=== PATIENT | female | born 1955 | race Caucasian/White ===

== ENCOUNTER 2020-12-22 14:19 | Outpatient (CLI) | payer MEDICARE ==
--- NOTE | 2020-12-22 15:03 | BD ---
Exam: DEXA Bone Density 12/22/20 HISTORY: Postmenopausal screening for osteoporosis. FINDINGS: Lumbar Spine: BMD (g/cm2) T-SCORE Z-SCORE L1 1.047 0.5 2.2 L2 1.155 1.2 3.0 L3 1.314 2.1 4.1 L4 1.218 1.4 3.5 L1-L4 1.181 1.2 3.1 Femoral Neck: 0.735 -1.0 0.6 Total Femur: 0.693 -2.0 =0.7 Impression: The ten year fracture risk for a major osteoporotic fracture is 6.6% and for hip fracture is 0.6%. IMPRESSION: Osteopenia. POS: OFF
--- NOTE | 2020-12-22 15:18 | MMO ---
Bilateral MAMMO Bilat Screen [facility]. CLINICAL HISTORY: Patient is 65 years old and is seen for screening. The patient has no family history of breast cancer. The patient has no personal history of cancer. VIEWS: The views performed were: bilateral craniocaudal with tomosynthesis and bilateral mediolateral oblique with tomosynthesis. This study has been interpreted with the assistance of computer-aided detection. MAMMOGRAM FINDINGS: There are scattered fibroglandular densities. There are no suspicious masses, suspicious calcifications, or new areas of architectural distortion. IMPRESSION: THERE IS NO MAMMOGRAPHIC EVIDENCE OF MALIGNANCY. A ROUTINE FOLLOW-UP MAMMOGRAM IN 1 YEAR IS RECOMMENDED. THE RESULTS OF THIS EXAM WERE SENT TO THE PATIENT. ACR BI-RADS Category 1 - Negative MAMMOGRAPHY NOTE: 1. A negative mammogram report should not delay a biopsy if a dominant of clinically suspicious mass is present. 2. Approximately 10% to 15% of breast cancers are not detected by mammography. 3. Adenosis and dense breasts may obscure an underlying neoplasm. Reported by: YOSSI CRAVEN MD Electonically Signed: [id number]
== END 2020-12-22 14:20 | disposition home or self-care (01) ==
LOC: BICMAMMO 14:19
PROVIDERS: ATTEND Family Medicine
DX: Z12.31 Encounter for screening mammogram for malignant neoplasm of breast (principal); Z13.820 Encounter for screening for osteoporosis; N95.1 Menopausal and female climacteric states; M85.859 Other specified disorders of bone density and structure, unspecified thigh
CPT/HCPCS: 77063; 77067; 77080

== ENCOUNTER 2021-02-28 13:47 | Outpatient (CLI) | payer MEDICARE | END 2021-02-28 13:48 | disposition home or self-care (01) | LOC: BICULT 13:47 | PROVIDERS: ATTEND Family Medicine | DX: R09.89 Other specified symptoms and signs involving the circulatory and respiratory systems (principal) | CPT/HCPCS: 93923 ==

== ENCOUNTER 2021-03-19 12:40 | Inpatient (IN) | payer MEDICARE ==
[2021-03-19] MEDS ORDERED: Fentanyl 100 MCG/2 ML VIAL ONE (13:10)
[2021-03-19] MEDS ORDERED: Acetaminophen 325 MG TAB PO PRN (19:00)
[2021-03-19] MEDS ORDERED: Ondansetron ODT 4 MG TAB SL PRN (19:00)
[2021-03-19] MEDS ORDERED: Ondansetron PF 4 MG/2 ML Vial IVP PRN (19:00)
[2021-03-19 21:13] LABS: #Eosinphils 0.1 thou/uL (0.0-0.7); #Lymphocytes 1.5 thou/uL (1.20-3.40); #Monocytes 0.4 thou/uL (0.11-0.59); #Neutrophils 2.7 thou/uL (1.40-6.50); %Basophils 0.1 % (0.0-1.0); %Eosinophils 2.2 % (0.0-10.0); %Monocytes 9.2 % (0.0-10.0); %Neutrophils 57.6 % (42.0-75.0); Hemoglobin 9.4 g/dL (12.0-16.0); Mean Corpuscular HGB CONC 33.4 g/dL (32.0-36.0); Mean Corpuscular Hemoglobin 28.9 pg (27.0-31.0); Mean Corpuscular Volume 86.5 fL (78.0-98.0); Mean Platelet Volume 9.4 fL (7.4-10.4); Platelet Count 149 thou/uL (130-400); RBC Distribution Width 13.3 % (11.5-14.5); Red Blood Cell (RBC) Count 3.25 mill/uL (4.20-5.40); White Blood Cell (WBC) Count 4.7 thou/uL (4.8-10.8)
[2021-03-19] MEDS ORDERED: VANCOMYCIN 1.25 GM/250 ML BAG IVPB SCH (21:30)
[2021-03-19 21:34] LABS: ALT (SGPT) 24 U/L (8-55); AST (SGOT) 52 U/L (5-34); Albumin 3.5 g/dL (3.4-4.8); Alkaline Phosphatase 60 U/L (40-110); Anion Gap 13 mmol/L (10-20); BUN (Urea Nitrogen) 17 mg/dL (9.8-20.1); Bilirubin, Total 0.3 mg/dL (0.2-1.2); CRP (Inflammatory) Less than 0.50 mg/dL (= or < 0.5); Calc. Creatinine Clearance 0 mL/min (70-130); Calcium 8.9 mg/dL (7.8-10.44); Carbon Dioxide 23 mmol/L (23-31); Chloride 109 mmol/L (98-107); Globulin 2.4 g/dL (2.4-3.5); Glucose 219 mg/dL (80-115); Potassium 3.8 mmol/L (3.5-5.1); Protein, Total 5.9 g/dL (5.8-8.1); Sodium 141 mmol/L (136-145)
[2021-03-19] MEDS: HYDROcodone/Acetaminophen 5/325 mg Tablet PO PRN (21:55)
[2021-03-19 21:58] VITALS: BMI 20.2
[2021-03-19] MEDS ORDERED: Dextrose 5% in Water 1,000 ML IV PRN (22:22)
[2021-03-19] MEDS ORDERED: Dextrose 50% Abboject 50 ML SYRINGE SLOW IVP PRN (22:22)
[2021-03-19] MEDS ORDERED: Vancomycin 1 GM in Premix Bag 1 BAG IVPB SCH (22:45)
[2021-03-20] MEDS: Ketorolac Tromethamine 30 MG/ML VIAL IVP PRN ×3 (02:11→22:39)
[2021-03-20 06:27] LABS: #Eosinphils 0.1 thou/uL (0.0-0.7); #Lymphocytes 1.5 thou/uL (1.20-3.40); #Monocytes 0.5 thou/uL (0.11-0.59); #Neutrophils 3.9 thou/uL (1.40-6.50); %Basophils 0.2 % (0.0-1.0); %Eosinophils 1.8 % (0.0-10.0); %Lymphocytes 24.6 % (21.0-51.0); %Monocytes 7.8 % (0.0-10.0); %Neutrophils 65.6 % (42.0-75.0); Hemoglobin 9.7 g/dL (12.0-16.0); Mean Corpuscular HGB CONC 32.1 g/dL (32.0-36.0); Mean Corpuscular Hemoglobin 27.7 pg (27.0-31.0); Mean Corpuscular Volume 86.3 fL (78.0-98.0); Mean Platelet Volume 8.9 fL (7.4-10.4); Platelet Count 146 thou/uL (130-400); RBC Distribution Width 13.3 % (11.5-14.5); Red Blood Cell (RBC) Count 3.49 mill/uL (4.20-5.40); White Blood Cell (WBC) Count 5.9 thou/uL (4.8-10.8)
[2021-03-20 06:47] LABS: Anion Gap 11 mmol/L (10-20); BUN (Urea Nitrogen) 16 mg/dL (9.8-20.1); Calc. Creatinine Clearance 63 mL/min (70-130); Calcium 8.9 mg/dL (7.8-10.44); Carbon Dioxide 25 mmol/L (23-31); Chloride 109 mmol/L (98-107); Glucose 103 mg/dL (80-115); Iron 50 ug/dL (50-170); Iron Binding Capacity, Total 270 mcg/dL (265-497); Potassium 3.2 mmol/L (3.5-5.1); Sodium 142 mmol/L (136-145)
[2021-03-20 06:51] LABS: Iron 47 ug/dL (50-170); Iron Binding Capacity, Total 268 mcg/dL (265-497)
[2021-03-20 07:12] LABS: Ferritin 24.68 ng/mL (10-291)
[2021-03-20] MEDS ORDERED: Potassium Chloride 20 MEQ TAB PO SCH (07:45)
[2021-03-20] MEDS: Losartan 25 MG TAB PO SCH (09:02)
[2021-03-20] MEDS: Enoxaparin Sodium 40 MG/0.4 ML SYRINGE SC SCH (09:02)
[2021-03-20] MEDS: Atorvastatin Calcium 40 MG TAB PO SCH (09:02)
[2021-03-20] MEDS: Collagenase 250 UNITS/GM Ointment 30 GM TUBE TOP SCH (11:44)
[2021-03-20] MEDS: Vancomycin HCl 750 MG in Sodium Chloride 0.9% 250 ML 250 ML IVPB SCH ×2 (11:44→23:06)
[2021-03-20] MEDS: HYDROcodone/Acetaminophen 5/325 mg Tablet PO PRN (13:40)
[2021-03-20 14:11] LABS: SARS-CoV-2 PCR by NAA Not Detected (NotDetected)
[2021-03-21] MEDS: Atorvastatin Calcium 40 MG TAB PO SCH (08:34)
[2021-03-21] MEDS: Losartan 25 MG TAB PO SCH (08:34)
[2021-03-21] MEDS: Collagenase 250 UNITS/GM Ointment 30 GM TUBE TOP SCH (08:35)
[2021-03-21] MEDS: Enoxaparin Sodium 40 MG/0.4 ML SYRINGE SC SCH (08:35)
[2021-03-21] MEDS ORDERED: Iopamidol-370 76% 500 ML 1 ML ONE (10:40)
[2021-03-21] MEDS ORDERED: Vancomycin 1 GM in Premix Bag 1 BAG IVPB SCH (11:00)
[2021-03-21] MEDS ORDERED: Ketorolac Tromethamine 30 MG/ML VIAL ONE (11:55)
[2021-03-21] MEDS: Ketorolac Tromethamine 30 MG/ML VIAL IVP PRN ×2 (12:05→21:12)
[2021-03-22] MEDS: Ketorolac Tromethamine 30 MG/ML VIAL IVP PRN ×4 (02:48→21:05)
[2021-03-22 08:24] LABS: #Eosinphils 0.2 thou/uL (0.0-0.7); #Lymphocytes 1.4 thou/uL (1.20-3.40); #Monocytes 0.4 thou/uL (0.11-0.59); #Neutrophils 3.3 thou/uL (1.40-6.50); %Basophils 0.3 % (0.0-1.0); %Eosinophils 3.4 % (0.0-10.0); %Monocytes 7.9 % (0.0-10.0); %Neutrophils 62.4 % (42.0-75.0); Hemoglobin 10.1 g/dL (12.0-16.0); Mean Corpuscular HGB CONC 32.1 g/dL (32.0-36.0); Mean Corpuscular Hemoglobin 28.1 pg (27.0-31.0); Mean Corpuscular Volume 87.3 fL (78.0-98.0); Mean Platelet Volume 9.4 fL (7.4-10.4); Platelet Count 145 thou/uL (130-400); RBC Distribution Width 13.4 % (11.5-14.5); Red Blood Cell (RBC) Count 3.61 mill/uL (4.20-5.40); White Blood Cell (WBC) Count 5.2 thou/uL (4.8-10.8)
[2021-03-22] MEDS: Aspirin 81 mg Enteric Coated Tablet PO SCH (08:29)
[2021-03-22] MEDS: Atorvastatin Calcium 40 MG TAB PO SCH (08:30)
[2021-03-22] MEDS: Losartan 25 MG TAB PO SCH (08:30)
[2021-03-22 08:34] LABS: Anion Gap 11 mmol/L (10-20); BUN (Urea Nitrogen) 20 mg/dL (9.8-20.1); Calc. Creatinine Clearance 62 mL/min (70-130); Calcium 8.9 mg/dL (7.8-10.44); Carbon Dioxide 27 mmol/L (23-31); Chloride 107 mmol/L (98-107); Glucose 101 mg/dL (80-115); Potassium 4.1 mmol/L (3.5-5.1); Sodium 141 mmol/L (136-145)
[2021-03-22] MEDS: Enoxaparin Sodium 40 MG/0.4 ML SYRINGE SC SCH (08:35)
[2021-03-22] MEDS: Collagenase 250 UNITS/GM Ointment 30 GM TUBE TOP SCH (09:40)
[2021-03-22] MEDS: HumaLOG 300 UNITS/3 ML VIAL SC PRN ×2 (11:16→21:06)
[2021-03-22] MEDS: HYDROcodone/Acetaminophen 5/325 mg Tablet PO PRN (23:42)
[2021-03-23] MEDS ORDERED: Lidocaine 1% (PF) 30 ML VIAL ONE (06:35)
[2021-03-23] MEDS ORDERED: Fentanyl 100 MCG/2 ML VIAL ONE (07:26)
[2021-03-23 07:30] LABS: Anion Gap 14 mmol/L (10-20); BUN (Urea Nitrogen) 25 mg/dL (9.8-20.1); Calc. Creatinine Clearance 59 mL/min (70-130); Calcium 9.3 mg/dL (7.8-10.44); Carbon Dioxide 26 mmol/L (23-31); Chloride 106 mmol/L (98-107); Glucose 99 mg/dL (80-115); Potassium 4.5 mmol/L (3.5-5.1); Sodium 141 mmol/L (136-145)
[2021-03-23 07:31] LABS: #Eosinphils 0.2 thou/uL (0.0-0.7); #Lymphocytes 1.5 thou/uL (1.20-3.40); #Monocytes 0.5 thou/uL (0.11-0.59); #Neutrophils 2.9 thou/uL (1.40-6.50); %Basophils 0.3 % (0.0-1.0); %Eosinophils 4.3 % (0.0-10.0); %Lymphocytes 29.3 % (21.0-51.0); %Monocytes 9.5 % (0.0-10.0); %Neutrophils 56.6 % (42.0-75.0); Hemoglobin 10.7 g/dL (12.0-16.0); Mean Corpuscular HGB CONC 31.8 g/dL (32.0-36.0); Mean Corpuscular Hemoglobin 27.9 pg (27.0-31.0); Mean Corpuscular Volume 87.7 fL (78.0-98.0); Mean Platelet Volume 9.8 fL (7.4-10.4); Platelet Count 171 thou/uL (130-400); RBC Distribution Width 13.6 % (11.5-14.5); Red Blood Cell (RBC) Count 3.83 mill/uL (4.20-5.40)
[2021-03-23] MEDS: Collagenase 250 UNITS/GM Ointment 30 GM TUBE TOP SCH (08:56)
[2021-03-23] MEDS: Enoxaparin Sodium 40 MG/0.4 ML SYRINGE SC SCH (08:56)
[2021-03-23] MEDS: Aspirin 81 mg Enteric Coated Tablet PO SCH (08:56)
[2021-03-23] MEDS ORDERED: Heparin 10,000 UNITS/ 10 ML VIAL ONE (08:56)
[2021-03-23] MEDS: Losartan 25 MG TAB PO SCH (08:56)
[2021-03-23] MEDS: Atorvastatin Calcium 40 MG TAB PO SCH (08:56)
[2021-03-23] MEDS ORDERED: hydrALAZINE 20 MG/ML VIAL ONE (08:58)
[2021-03-23] MEDS ORDERED: Protamine Sulfate 50 MG/5 ML VIAL ONE (09:05)
[2021-03-23] MEDS ORDERED: Metoprolol Tartrate 5 MG/5 ML VIAL ONE (09:20)
[2021-03-23] MEDS ORDERED: HYDROcodone/Acetaminophen 5/325 mg Tablet ONE (10:39)
[2021-03-23] MEDS ORDERED: Iopamidol 370 76% 50 ML VIAL FS ONE (11:30)
[2021-03-23] MEDS: Ketorolac Tromethamine 30 MG/ML VIAL IVP PRN ×2 (13:15→20:06)
[2021-03-23] MEDS ORDERED: Magnesium Citrate 300 ML BOT PO SCH (15:45)
[2021-03-23] MEDS: HumaLOG 300 UNITS/3 ML VIAL SC PRN ×2 (17:14→20:32)
[2021-03-24] MEDS: Ketorolac Tromethamine 30 MG/ML VIAL IVP PRN (05:35)
[2021-03-24] MEDS: Aspirin 81 mg Enteric Coated Tablet PO SCH (08:13)
[2021-03-24] MEDS: Enoxaparin Sodium 40 MG/0.4 ML SYRINGE SC SCH (08:14)
[2021-03-24] MEDS: Losartan 25 MG TAB PO SCH (08:17)
[2021-03-24] MEDS: Atorvastatin Calcium 40 MG TAB PO SCH (08:17)
[2021-03-24] MEDS: Collagenase 250 UNITS/GM Ointment 30 GM TUBE TOP SCH (08:19)
[2021-03-24] MEDS ORDERED: Pioglitazone HCl 15 MG TAB PO SCH (09:00)
[2021-03-24] MEDS ORDERED: Heparin 5,000 UNITS/ML VIAL ONE (10:04)
[2021-03-24] MEDS ORDERED: Protamine Sulfate 50 MG/5 ML VIAL ONE (10:04)
[2021-03-24] MEDS ORDERED: Heparin 10,000 UNITS/ 10 ML VIAL ONE (11:15)
[2021-03-24] MEDS ORDERED: Heparin 10,000 UNITS/1 ML VIAL 30,000 UNITS in Sodium Chloride 0.9% 1,000 ML FS SCH (11:15)
[2021-03-24] MEDS ORDERED: Fentanyl 100 MCG/2 ML VIAL ONE (11:18)
[2021-03-24] MEDS ORDERED: PHENYLEPHRINE-NS 100 MCG/ML 10 ML SYRINGE ONE (11:33)
[2021-03-24] MEDS ORDERED: Dexamethasone 20 MG/5 ML VIAL ONE (11:33)
[2021-03-24] MEDS ORDERED: Rocuronium Bromide 10 MG/ML (10ML VIAL) ONE (11:33)
[2021-03-24] MEDS ORDERED: PROPOFOL 200 MG/20 ML VIAL ONE (11:33)
[2021-03-24] MEDS ORDERED: Ketorolac Tromethamine 30 MG/ML VIAL ONE (11:33)
[2021-03-24] MEDS ORDERED: Ondansetron PF 4 MG/2 ML Vial ONE ×2 (11:33→15:43)
[2021-03-24] MEDS ORDERED: Lidocaine 1% PF 5 ML VIAL ONE (11:33)
[2021-03-24] MEDS ORDERED: Ondansetron HCl/PF 4 MG/2 ML Vial IVP PRN (13:36)
[2021-03-24] MEDS ORDERED: Ondansetron PF 4 MG/2 ML Vial IVP PRN (15:08)
[2021-03-24] MEDS ORDERED: Nitroglycerin 50 MG/250 ML BOT 250 ML IVPB PRN (15:08)
[2021-03-24] MEDS ORDERED: Fentanyl 100 MCG/2 ML VIAL SLOW IVP PRN ×2 (15:08)
[2021-03-24] MEDS ORDERED: Norepinephrine 8 MG/0.9% NS 250 ML IVPB PRN (15:08)
[2021-03-24] MEDS ORDERED: Promethazine HCl 25 MG/ML VIAL IVPB PRN (15:08)
[2021-03-24] MEDS ORDERED: Electrolyte Replacement Protocol IVPB PRN (15:08)
[2021-03-24 15:49] LABS: Hemoglobin 7.8 g/dL (12.0-16.0); Mean Corpuscular Hemoglobin 29.1 pg (27.0-31.0); Mean Platelet Volume 8.8 fL (7.4-10.4); Platelet Count 175 thou/uL (130-400); RBC Distribution Width 13.6 % (11.5-14.5); Red Blood Cell (RBC) Count 2.67 mill/uL (4.20-5.40); White Blood Cell (WBC) Count 9.6 thou/uL (4.8-10.8)
[2021-03-24] MEDS: Ketorolac Tromethamine 30 MG/ML VIAL IVP SCH (17:43)
[2021-03-24] MEDS: Lactated Ringer's 1,000 ML IV SCH (17:44)
[2021-03-24] MEDS: CEFAZOLIN 2 GM in Premix Bag 1 BAG IVPB SCH (20:39)
[2021-03-24] MEDS: Acetaminophen 325 MG TAB PO PRN (20:39)
[2021-03-24] MEDS: Insulin Regular 300 UNITS/3 ML VIAL SC PRN (21:08)
[2021-03-25] MEDS: Ketorolac Tromethamine 30 MG/ML VIAL IVP SCH ×5 (00:07→23:04)
[2021-03-25] MEDS: Lactated Ringer's 1,000 ML IV SCH ×2 (00:07→06:05)
[2021-03-25] MEDS: CEFAZOLIN 2 GM in Premix Bag 1 BAG IVPB SCH ×2 (02:45→10:04)
[2021-03-25 03:52] LABS: #Lymphocytes 0.5 thou/uL (1.20-3.40); #Monocytes 0.6 thou/uL (0.11-0.59); #Neutrophils 7.4 thou/uL (1.40-6.50); %Basophils 0.4 % (0.0-1.0); %Eosinophils 0.1 % (0.0-10.0); %Lymphocytes 6.1 % (21.0-51.0); %Monocytes 6.5 % (0.0-10.0); %Neutrophils 86.9 % (42.0-75.0); Hemoglobin 6.6 g/dL (12.0-16.0); Mean Corpuscular HGB CONC 32.9 g/dL (32.0-36.0); Mean Corpuscular Hemoglobin 28.6 pg (27.0-31.0); Mean Corpuscular Volume 87.1 fL (78.0-98.0); Platelet Count 150 thou/uL (130-400); RBC Distribution Width 13.5 % (11.5-14.5); Red Blood Cell (RBC) Count 2.31 mill/uL (4.20-5.40); White Blood Cell (WBC) Count 8.5 thou/uL (4.8-10.8)
[2021-03-25 04:19] LABS: Anion Gap 11 mmol/L (10-20); BUN (Urea Nitrogen) 24 mg/dL (9.8-20.1); Calc. Creatinine Clearance 55 mL/min (70-130); Calcium 7.8 mg/dL (7.8-10.44); Carbon Dioxide 24 mmol/L (23-31); Chloride 107 mmol/L (98-107); Glucose 192 mg/dL (80-115); Potassium 4.4 mmol/L (3.5-5.1); Sodium 138 mmol/L (136-145)
[2021-03-25] MEDS: Enoxaparin Sodium 30 MG/0.3 ML SYRINGE SC SCH (10:03)
[2021-03-25] MEDS: Insulin Regular 300 UNITS/3 ML VIAL SC PRN (16:22)
[2021-03-25] MEDS: Acetaminophen 325 MG TAB PO PRN (20:35)
[2021-03-26 04:24] LABS: Anion Gap 9 mmol/L (10-20); BUN (Urea Nitrogen) 18 mg/dL (9.8-20.1); Calc. Creatinine Clearance 66 mL/min (70-130); Calcium 8.3 mg/dL (7.8-10.44); Carbon Dioxide 24 mmol/L (23-31); Chloride 111 mmol/L (98-107); Glucose 110 mg/dL (80-115); Potassium 4.6 mmol/L (3.5-5.1); Sodium 139 mmol/L (136-145)
[2021-03-26] MEDS: Ketorolac Tromethamine 30 MG/ML VIAL IVP SCH ×3 (06:06→17:48)
[2021-03-26 06:10] LABS: #Eosinphils 0.2 thou/uL (0.0-0.7); #Lymphocytes 1.1 thou/uL (1.20-3.40); #Monocytes 0.5 thou/uL (0.11-0.59); %Basophils 0.3 % (0.0-1.0); %Eosinophils 3.6 % (0.0-10.0); %Lymphocytes 15.4 % (21.0-51.0); %Monocytes 7.9 % (0.0-10.0); %Neutrophils 72.9 % (42.0-75.0); Hemoglobin 9.5 g/dL (12.0-16.0); Mean Corpuscular HGB CONC 32.6 g/dL (32.0-36.0); Mean Corpuscular Hemoglobin 28.9 pg (27.0-31.0); Mean Corpuscular Volume 88.9 fL (78.0-98.0); Mean Platelet Volume 9.2 fL (7.4-10.4); Platelet Count 127 thou/uL (130-400); RBC Distribution Width 13.4 % (11.5-14.5); Red Blood Cell (RBC) Count 3.27 mill/uL (4.20-5.40); White Blood Cell (WBC) Count 6.9 thou/uL (4.8-10.8)
[2021-03-26] MEDS: Enoxaparin Sodium 30 MG/0.3 ML SYRINGE SC SCH (08:22)
[2021-03-26] MEDS: Acetaminophen 325 MG TAB PO PRN (08:23)
[2021-03-26] MEDS ORDERED: Losartan 25 MG TAB PO SCH ×2 (10:35→10:45)
[2021-03-26] MEDS ORDERED: Aspirin 81 mg Enteric Coated Tablet PO SCH ×2 (10:35→10:45)
[2021-03-26] MEDS: Insulin Regular 300 UNITS/3 ML VIAL SC PRN (11:33)
[2021-03-26] MEDS ORDERED: Atorvastatin Calcium 40 MG TAB PO SCH (21:00)
[2021-03-27] MEDS: Ketorolac Tromethamine 30 MG/ML VIAL IVP SCH ×2 (00:12→05:30)
[2021-03-27] MEDS ORDERED: hydrALAZINE 20 MG/ML VIAL SLOW IVP SCH (04:00)
[2021-03-27] MEDS ORDERED: traMADol HCl 50 MG TAB PO PRN (06:04)
[2021-03-27] MEDS: Enoxaparin Sodium 30 MG/0.3 ML SYRINGE SC SCH (08:10)
[2021-03-27] MEDS ORDERED: Aspirin 81 mg Enteric Coated Tablet PO SCH (09:00)
[2021-03-27] MEDS ORDERED: Polyethylene Glycol 3350 17 GM Packet PO SCH (09:00)
[2021-03-27] MEDS ORDERED: Losartan 25 MG TAB PO SCH ×2 (09:00)
[2021-03-27] MEDS ORDERED: Amlodipine 5 MG TAB PO SCH (09:00)
[2021-03-27 15:41] VITALS: TEMP 97.4
[2021-03-27 16:08] VITALS: BP 141/63
== END 2021-03-27 15:50 | DRG 271 ==
LOC: ERS 12:40 → T4-A 16:19 → OBSVTOIN 03-20 21:03 → CCU 03-24 16:27 → 2NO 03-26 11:19
PROVIDERS: ADMIT Family Medicine; ATTEND Internal Medicine
PROC: B41GZZZ Fluoroscopy of Left Lower Extremity Arteries (ICD-10-PCS; 2021-03-23)
PROC: B41FZZZ Fluoroscopy of Right Lower Extremity Arteries (ICD-10-PCS; 2021-03-23)
PROC: 04100JJ Bypass Abdominal Aorta to Left Femoral Artery with Synthetic Substitute, Open Approach (ICD-10-PCS; principal; 2021-03-24)
PROC: 30233N1 Transfusion of Nonautologous Red Blood Cells into Peripheral Vein, Percutaneous Approach (ICD-10-PCS; 2021-03-25)
DX: E11.51 Type 2 diabetes mellitus with diabetic peripheral angiopathy without gangrene (principal); D62 Acute posthemorrhagic anemia; Z20.822 Contact with and (suspected) exposure to COVID-19; I10 Essential (primary) hypertension; M25.452 Effusion, left hip; M24.562 Contracture, left knee; M24.552 Contracture, left hip; I70.222 Atherosclerosis of native arteries of extremities with rest pain, left leg; E78.5 Hyperlipidemia, unspecified; R29.6 Repeated falls; I25.10 Atherosclerotic heart disease of native coronary artery without angina pectoris; Z95.5 Presence of coronary angioplasty implant and graft; Z79.82 Long term (current) use of aspirin; Z79.899 Other long term (current) drug therapy; Z79.4 Long term (current) use of insulin
CPT/HCPCS: 36140; 36246; 36415; 36416; 36430; 71045; 72170; 75630; 75635; 76942; 80048; 80053; 80202; 82607; 82728; 82746; 83540; 83550; 85025; 85027; 85347; 86140; 86850; 86900; 86901; 87635; 93306; 96372; 96374; 96375; 96376; C1874; G0378; J0360; J0690; J1100; J1644; J1650; J1815; J1885; J2001; J2405; J2704; J2720; J3010; J3370; J7050; P9016; Q9967; U0003; U0005

== ENCOUNTER 2022-03-15 13:09 | Outpatient (CLI) | payer MEDICARE | END 2022-03-15 13:10 | disposition home or self-care (01) | LOC: BICMAMMO 13:09 | PROVIDERS: ATTEND Internal Medicine | DX: N63.20 Unspecified lump in the left breast, unspecified quadrant (principal) | CPT/HCPCS: 76642; 77066; G0279 ==